=== PATIENT | male | born 1995 | race Caucasian/White ===

== ENCOUNTER 2022-03-13 19:20 | Emergency (ER) | payer OTHER ==
[~2022-03-13] VITALS: Ht 175.3 cm; Wt 74.8 kg
[2022-03-13 19:23] VITALS: BP 102/65
--- NOTE | 2022-03-13 19:37 | NUR ---
Dr. Medrano examining patient.
--- NOTE | 2022-03-13 19:40 | NUR ---
ER AT BEDSIDE
[2022-03-13] MEDS ORDERED: KETOROLAC 60 MG/2 ML VIAL IM ONE (19:45)
[2022-03-13] MEDS ORDERED: ACET-8386 PO (19:47)
[2022-03-13] MEDS ORDERED: IBUP-2213 PO (19:47)
[2022-03-13 20:10] VITALS: BP 102/65
--- NOTE | 2022-03-13 20:10 | NUR ---
Patient discharged with v/s stable. Written and verbal after care instructions given and explained. Patient alert, oriented and verbalized understanding of instructions. Ambulatory with steady gait. All questions addressed prior to discharge. ID band removed. Patient advised to follow up with PMD. Rx of HYDROCODONE IBUPROFEN given. Patient educated on indication of medication including possible reaction and side effects. Opportunity to ask questions provided and answered.
--- NOTE | 2022-03-13 20:31 | NUR ---
The patient's care was reviewed and supervised by Phylicia Obando RN. Chart checked.
== END 2022-03-13 20:10 | disposition home or self-care (01) ==
LOC: MED 19:20
DX: R10.32 Left lower quadrant pain (principal); R19.7 Diarrhea, unspecified; F17.200 Nicotine dependence, unspecified, uncomplicated
CPT/HCPCS: 96372; 99283; J1885